=== PATIENT | female | born 1985 | race African-American/Black ===

== ENCOUNTER 2025-05-15 23:50 | Emergency (ER) | payer MEDICAID ==
[~2025-05-15] VITALS: Ht 162.6 cm; Wt 59.0 kg
[2025-05-15 23:59] VITALS: O2SAT 99
[2025-05-16 00:59] LABS: BASOPHILS % 0.5 % (0.0-2.0); EOSINOPHILS % 0.3 % (0.0-5.0); HEMATOCRIT. 35.4 % (36.0-48.0); HEMOGLOBIN. 11.6 g/dL (12.0-16.0); MEAN CORPUSCULAR HEMOGLOBIN 32.5 pg (28.0-32.0); MEAN CORPUSCULAR HGB CONC 32.8 g/dL (31.0-37.0); MEAN CORPUSCULAR VOLUME 99.2 fL (81.0-99.0); MEAN PLATELET VOLUME 8.2 fl (7.4-10.4); MONOCYTES % 4.4 % (2.0-8.0); NEUTROPHILS % 68.8 % (40.0-76.0); PLATELET 276 x1000/uL (130-400); RED BLOOD CELL COUNT 3.57 mill/uL (4.2-5.4); WHITE BLOOD COUNT 4.5 x1000/uL (4.5-11.0)
[2025-05-16 01:07] LABS: CHLORIDE 108 mEq/L (98-107); POTASSIUM 3.9 mEq/L (3.5-5.1); SODIUM 145 mEq/L (136-145)
[2025-05-16 01:08] LABS: CALCIUM 8.6 mg/dL (8.7-10.4); CARBON DIOXIDE 25 mEq/L (21-32)
[2025-05-16 01:13] LABS: CREATININE 0.7 mg/dL (0.6-1.0); GLUCOSE 95 mg/dL (70-105); UREA NITROGEN BLOOD 7 mg/dL (9-23)
[2025-05-16 01:18] LABS: B-HCG QUANTITATIVE < 1 mIU/mL (<6)
[2025-05-16] MEDS: SODIUM CHLORIDE 0.9% 1,000 ML IV ONE (01:39)
[2025-05-16] MEDS: ACETAMINOPHEN 1000MG/100ML 100 ML IV NR (01:39)
[2025-05-16] MEDS ORDERED: NAPR-1074 MT (02:30)
[2025-05-16 03:14] LABS: CLARITY URINE CLOUDY (CLEAR); COLOR URINE DARK YELLOW (YELLOW); GLUCOSE URINE NEGATIVE (NEGATIVE); KETONES URINE 1+ (NEGATIVE); LEUKOCYTE ESTERASE URINE NEGATIVE (NEGATIVE); NITRITE URINE NEGATIVE (NEGATIVE); OCCULT BLOOD URINE NEGATIVE (NEGATIVE); PH URINE 5.5 (4.5-8.0); PROTEIN URINE TRACE (NEGATIVE); SPECIFIC GRAVITY URINE 1.029 (1.005-1.030)
[2025-05-16 03:18] VITALS: BP 114/72; PULSE 96; RESP 13; TEMP 36.6; O2SAT 100
[2025-05-16 03:22] LABS: *AMPHETAMINES SCREEN URINE NEGATIVE (NEGATIVE); *BARBITURATES SCREEN URINE NEGATIVE (NEGATIVE); *BENZODIAZEPINES SCREEN URINE NEGATIVE (NEGATIVE); *COCAINE SCREEN URINE NEGATIVE (NEGATIVE); CANNABINOID URINE SCREEN NEGATIVE (NEGATIVE); ECSTASY MDMA SCREEN URINE NEGATIVE (NEGATIVE); METHADONE URINE SCREEN NEGATIVE (NEGATIVE); OPIATES URINE SCREEN NEGATIVE (NEGATIVE); PHENCYCLIDINE URINE SCREEN NEGATIVE (NEGATIVE)
[2025-05-16 04:09] LABS: SQUAMOUS EPITHELIAL CELL URINE 3+ /lpf (RARE/1+)
[2025-05-16 04:10] LABS: BACTERIA URINE TRACE; MUCUS URINE 2+ /lpf (< = 2+); RBC URINE NONE SEEN /hpf (0-2); WBC URINE 0-2 /hpf (0-2)
== END 2025-05-16 03:33 | disposition home or self-care (01) ==
LOC: ER 23:50
DX: N83.202 Unspecified ovarian cyst, left side (principal); D25.1 Intramural leiomyoma of uterus; D64.9 Anemia, unspecified; R10.30 Lower abdominal pain, unspecified; Z79.899 Other long term (current) drug therapy
CPT/HCPCS: 99285; 96365; 76830; 76856; 80305; 80048; 84702; 85025; 86850; 86900; 86901; 36415; 81003; J7030; J0131

== ENCOUNTER 2025-06-25 15:26 | Emergency (ER) | payer MEDICAID, OTHER ==
[~2025-06-25] VITALS: Ht 165.1 cm; Wt 66.0 kg
[~2025-06-25 15:26] MED LIST: NAPR-1074 MT
[2025-06-25 15:27] VITALS: O2SAT 98
[2025-06-25 17:00] LABS: BASOPHILS % 0.3 % (0.0-2.0); EOSINOPHILS % 0.5 % (0.0-5.0); HEMATOCRIT. 35.8 % (36.0-48.0); HEMOGLOBIN. 11.6 g/dL (12.0-16.0); LYMPHOCYTES % 22.0 % (20.0-50.0); MEAN PLATELET VOLUME 7.9 fl (7.4-10.4); MONOCYTES % 3.0 % (2.0-8.0); NEUTROPHILS % 74.2 % (40.0-76.0); PLATELET 276 x1000/uL (130-400); RED BLOOD CELL COUNT 3.65 mill/uL (4.2-5.4); RED CELL DISTRIBUTION WIDTH 16.4 % (11.6-14.6)
[2025-06-25 17:13] LABS: CREATININE 0.9 mg/dL (0.6-1.0); UREA NITROGEN BLOOD 6 mg/dL (9-23)
[2025-06-25 17:31] LABS: TROPONIN I HIGH SENSITIVITY < 4 ng/L (3.0-34)
[2025-06-25 17:32] LABS: ASPARTATE AMINOTRANSFERASE 115 IU/L (<34); BILIRUBIN DIRECT 0.2 mg/dL (<=3.0)
[2025-06-25 17:33] LABS: BILIRUBIN TOTAL 0.6 mg/dL (0.1-1.0); PROTEIN TOTAL 6.7 g/dL (6.0-8.3)
[2025-06-25 17:36] LABS: HCG SCREEN NEGATIVE
[2025-06-25 19:46] LABS: CLARITY URINE CLEAR (CLEAR); COLOR URINE YELLOW (YELLOW); GLUCOSE URINE NEGATIVE (NEGATIVE); KETONES URINE TRACE (NEGATIVE); LEUKOCYTE ESTERASE URINE NEGATIVE (NEGATIVE); NITRITE URINE NEGATIVE (NEGATIVE); OCCULT BLOOD URINE NEGATIVE (NEGATIVE); PH URINE 7.0 (4.5-8.0); PROTEIN URINE NEGATIVE (NEGATIVE); SPECIFIC GRAVITY URINE 1.018 (1.005-1.030); UROBILINOGEN URINE 1.0 E.U./dL (0.2-1.0)
[2025-06-25] MEDS: ONDANSETRON 4MG ODT PO ONE (19:52)
[2025-06-25] MEDS: ACETAMINOPHEN 500MG TABLET PO ONE (19:52)
[2025-06-25] MEDS ORDERED: ONDA4TAB50 MT (20:33)
[2025-06-25] MEDS ORDERED: IBUP-2028 MT (20:33)
[2025-06-25 20:39] VITALS: BP 109/81; PULSE 79; RESP 16; TEMP 36.8; O2SAT 97
== END 2025-06-25 21:04 | disposition home or self-care (01) ==
LOC: ER 15:35 → CANBEDREQ 20:21 → ER 21:04
DX: K80.20 Calculus of gallbladder without cholecystitis without obstruction (principal); R07.89 Other chest pain; K76.0 Fatty (change of) liver, not elsewhere classified; F10.90 Alcohol use, unspecified, uncomplicated; Z79.899 Other long term (current) drug therapy; Y90.9 Presence of alcohol in blood, level not specified
CPT/HCPCS: 80076; 80048; 81003; 81025; 84703; 83690; 85025; 84484; 36415; 71045; 76700; 93005; 99285; Q0162; Z7610 ×2

== ENCOUNTER 2025-06-28 05:37 | Emergency (ER) | payer OTHER ==
[~2025-06-28] VITALS: Ht 165.1 cm; Wt 60.5 kg
[~2025-06-28 05:37] MED LIST changes: +IBUP-2028 MT; +ONDA4TAB50 MT
[2025-06-28 05:51] VITALS: O2SAT 100
[2025-06-28 06:54] LABS: BASOPHILS % 1.2 % (0.0-2.0); EOSINOPHILS % 1.0 % (0.0-5.0); HEMATOCRIT. 36.0 % (36.0-48.0); HEMOGLOBIN. 11.7 g/dL (12.0-16.0); LYMPHOCYTES % 36.9 % (20.0-50.0); MEAN PLATELET VOLUME 8.1 fl (7.4-10.4); MONOCYTES % 5.8 % (2.0-8.0); NEUTROPHILS % 55.1 % (40.0-76.0); PLATELET 211 x1000/uL (130-400); RED BLOOD CELL COUNT 3.67 mill/uL (4.2-5.4); RED CELL DISTRIBUTION WIDTH 16.3 % (11.6-14.6)
[2025-06-28 07:00] LABS: HCG SCREEN NEGATIVE
[2025-06-28 07:06] LABS: CREATININE 0.8 mg/dL (0.6-1.0); TROPONIN I HIGH SENSITIVITY < 4 ng/L (3.0-34); UREA NITROGEN BLOOD 7 mg/dL (9-23)
[2025-06-28 07:07] LABS: ETHANOL BLOOD 221 mg/dL (<10)
[2025-06-28 07:08] LABS: ASPARTATE AMINOTRANSFERASE 227 IU/L (<34); BILIRUBIN DIRECT 0.2 mg/dL (<=3.0); BILIRUBIN TOTAL 0.6 mg/dL (0.1-1.0)
[2025-06-28] MEDS: ONDANSETRON 4MG ODT PO ONE (07:08)
[2025-06-28] MEDS: FAMOTIDINE 20MG TABLET PO ONE (07:08)
[2025-06-28 07:09] LABS: PROTEIN TOTAL 6.7 g/dL (6.0-8.3)
[2025-06-28] MEDS: KETOROLAC 30MG/ML VIAL IM ONE (08:13)
[2025-06-28] MEDS ORDERED: IBUP-2030 MT (08:33)
[2025-06-28 08:40] VITALS: BP 125/80; PULSE 83; RESP 18; TEMP 36.7; O2SAT 100
== END 2025-06-28 08:42 | disposition home or self-care (01) ==
LOC: ER 05:37
DX: K80.70 Calculus of gallbladder and bile duct without cholecystitis without obstruction (principal); Z79.899 Other long term (current) drug therapy
CPT/HCPCS: 80076; 80048; 81025; 80320; 84703; 83690; 85025; 84484; 36415; 76705; 96372; 99285; Q0162; J1885; G0480

== ENCOUNTER 2025-08-01 22:07 | Emergency (ER) | payer OTHER ==
[~2025-08-01] VITALS: Ht 167.6 cm; Wt 59.0 kg
[~2025-08-01 22:07] MED LIST changes: +ACET-2708 MT; +FAMO-135 MT; +HYDR-3735 PO; -IBUP-2028 MT; -NAPR-1074 MT; +PROT40 MT; +SUCR1TAB PO; +TRAZ-251 MT
[2025-08-01 22:11] VITALS: O2SAT 99
[2025-08-02 01:05] LABS: HCG SCREEN NEGATIVE
[2025-08-02 01:08] LABS: BASOPHILS % 0.2 % (0.0-2.0); EOSINOPHILS % 2.1 % (0.0-5.0); HEMATOCRIT. 28.5 % (36.0-48.0); HEMOGLOBIN. 9.5 g/dL (12.0-16.0); LYMPHOCYTES % 27.5 % (20.0-50.0); MEAN PLATELET VOLUME 8.4 fl (7.4-10.4); MONOCYTES % 4.0 % (2.0-8.0); NEUTROPHILS % 66.2 % (40.0-76.0); PLATELET 294 x1000/uL (130-400); RED BLOOD CELL COUNT 3.06 mill/uL (4.2-5.4); RED CELL DISTRIBUTION WIDTH 16.2 % (11.6-14.6)
[2025-08-02 01:09] LABS: CREATININE 0.9 mg/dL (0.6-1.0); UREA NITROGEN BLOOD 10 mg/dL (9-23)
[2025-08-02 01:11] LABS: ASPARTATE AMINOTRANSFERASE 34 IU/L (<34)
[2025-08-02 01:12] LABS: BILIRUBIN DIRECT < 0.1 mg/dL (<=3.0); BILIRUBIN TOTAL 0.2 mg/dL (0.1-1.0); PROTEIN TOTAL 6.9 g/dL (6.0-8.3)
[2025-08-02] MEDS: SODIUM CHLORIDE 0.9% 1,000 ML IV ONE (02:01)
[2025-08-02] MEDS: HALOPERIDOL LACTATE 5MG/ML VIAL IM NR (02:10)
[2025-08-02] MEDS: HALOPERIDOL LACTATE 5MG/ML VIAL IM ONE (02:10)
[2025-08-02] MEDS ORDERED: ACETAMINOPHEN 325MG TABLET PO PRN ×2 (02:15)
[2025-08-02] MEDS ORDERED: ONDANSETRON HCL 4MG/2ML INJ IV PRN (02:15)
[2025-08-02] MEDS ORDERED: LORAZEPAM 2MG/ML UD SYRINGE IV PRN (02:15)
[2025-08-02] MEDS: FOLIC ACID 1 MG, THIAMINE HCL 100 MG, MVI, ADULT NO.1 10 ML in DEXTROSE 5% WATER 1,000 ML IV ONE (02:36)
[2025-08-02] MEDS: ONDANSETRON HCL 4MG/2ML INJ IV ONE (02:36)
[2025-08-02] MEDS: MAGNESIUM/ALUMINUM HYDROXIDE/SIMETHICONE 30ML UDC PO NR (02:37)
[2025-08-02] MEDS: MAGNESIUM/ALUMINUM HYDROXIDE/SIMETHICONE 30ML UDC PO ONE (02:37)
[2025-08-02] MEDS: ONDANSETRON HCL 4MG/2ML INJ IV NR (02:38)
[2025-08-02 08:47] VITALS: BP 114/76; PULSE 83; RESP 15; TEMP 36.7; O2SAT 99
[2025-08-02] MEDS: THIAMINE HCL 100MG TABLET PO SCH (09:12)
== END 2025-08-02 10:12 | disposition left against medical advice (07) ==
LOC: ER 22:07 → EDBEDREQ 08-02 01:59 → EDBEDREQTM 08-02 01:59 → EDBEDREQDT 08-02 01:59 → CANBEDREQ 08-02 10:09 → ER 08-02 10:12
DX: R10.11 Right upper quadrant pain (principal); F10.20 Alcohol dependence, uncomplicated; E87.1 Hypo-osmolality and hyponatremia; E87.0 Hyperosmolality and hypernatremia; Z79.899 Other long term (current) drug therapy; Z86.018 Personal history of other benign neoplasm; Z87.19 Personal history of other diseases of the digestive system; Z88.6 Allergy status to analgesic agent
CPT/HCPCS: 99291; 36415; 96365; 96366; 96361; 96375; 80076; 80048; 84703; 83690; 85025; J7030; J3490 ×2; J2405; J3411; J7070; A4606

== ENCOUNTER 2025-08-17 23:58 | Emergency (ER) | payer OTHER ==
[~2025-08-17] VITALS: Ht 165.1 cm; Wt 68.0 kg
[~2025-08-17 23:58] MED LIST changes: -TRAZ-251 MT
[2025-08-18 00:01] VITALS: BP 106/68; PULSE 94; RESP 16; TEMP 36.9; O2SAT 100
[2025-08-18 01:45] LABS: BASOPHILS % 1.2 % (0.0-2.0); EOSINOPHILS % 1.2 % (0.0-5.0); HEMATOCRIT. 32.2 % (36.0-48.0); HEMOGLOBIN. 10.6 g/dL (12.0-16.0); LYMPHOCYTES % 31.3 % (20.0-50.0); MEAN PLATELET VOLUME 8.0 fl (7.4-10.4); MONOCYTES % 3.1 % (2.0-8.0); NEUTROPHILS % 63.2 % (40.0-76.0); PLATELET 320 x1000/uL (130-400); RED BLOOD CELL COUNT 3.47 mill/uL (4.2-5.4); RED CELL DISTRIBUTION WIDTH 16.6 % (11.6-14.6)
[2025-08-18 01:59] LABS: CREATININE 0.7 mg/dL (0.6-1.0); UREA NITROGEN BLOOD 6 mg/dL (9-23)
[2025-08-18 02:01] LABS: ASPARTATE AMINOTRANSFERASE 23 IU/L (<34); BILIRUBIN DIRECT < 0.1 mg/dL (<=3.0); BILIRUBIN TOTAL 0.3 mg/dL (0.1-1.0); PROTEIN TOTAL 7.1 g/dL (6.0-8.3)
== END 2025-08-18 02:40 | disposition home or self-care (01) ==
LOC: ER 23:58
DX: K80.20 Calculus of gallbladder without cholecystitis without obstruction (principal); Z79.899 Other long term (current) drug therapy; Z88.6 Allergy status to analgesic agent
CPT/HCPCS: 36415; 76705; 80048; 80076; 80320; 85025; 99284; G0480

== ENCOUNTER 2025-08-18 03:00 | Emergency (ER) | payer OTHER ==
[~2025-08-18] VITALS: Ht 165.1 cm; Wt 59.0 kg
[2025-08-18 03:09] VITALS: O2SAT 96
[2025-08-18] MEDS ORDERED: MORPHINE SULFATE 4 MG/ML INJ (FOR IV/IM USE) IV ONE (06:45)
[2025-08-18] MEDS: SODIUM CHLORIDE 0.9% 1,000 ML IV ONE (07:34)
[2025-08-18] MEDS: KETOROLAC 30MG/ML VIAL IV ONE (07:35)
[2025-08-18] MEDS: ONDANSETRON HCL 4MG/2ML INJ IV ONE (07:35)
[2025-08-18 07:44] VITALS: TEMP 36.7; O2SAT 99
[2025-08-18 07:53] VITALS: BP 106/79; PULSE 74; RESP 18; TEMP 98.1
[2025-08-18 07:54] LABS: CREATININE 0.8 mg/dL (0.6-1.0); UREA NITROGEN BLOOD 7 mg/dL (9-23)
[2025-08-18 07:55] LABS: BASOPHILS % 1.0 % (0.0-2.0); EOSINOPHILS % 1.6 % (0.0-5.0); HEMATOCRIT. 37.5 % (36.0-48.0); HEMOGLOBIN. 12.1 g/dL (12.0-16.0); LYMPHOCYTES % 34.2 % (20.0-50.0); MEAN PLATELET VOLUME 8.1 fl (7.4-10.4); MONOCYTES % 4.3 % (2.0-8.0); NEUTROPHILS % 58.9 % (40.0-76.0); PLATELET 306 x1000/uL (130-400); RED BLOOD CELL COUNT 3.97 mill/uL (4.2-5.4); RED CELL DISTRIBUTION WIDTH 16.9 % (11.6-14.6)
[2025-08-18 07:56] LABS: ASPARTATE AMINOTRANSFERASE 29 IU/L (<34); BILIRUBIN DIRECT < 0.1 mg/dL (<=3.0); BILIRUBIN TOTAL 0.3 mg/dL (0.1-1.0); PROTEIN TOTAL 8.0 g/dL (6.0-8.3)
[2025-08-18 08:53] LABS: CLARITY URINE CLEAR (CLEAR); COLOR URINE YELLOW (YELLOW); GLUCOSE URINE NEGATIVE (NEGATIVE); KETONES URINE TRACE (NEGATIVE); LEUKOCYTE ESTERASE URINE NEGATIVE (NEGATIVE); NITRITE URINE NEGATIVE (NEGATIVE); OCCULT BLOOD URINE NEGATIVE (NEGATIVE); PH URINE 5.0 (4.5-8.0); PROTEIN URINE NEGATIVE (NEGATIVE); SPECIFIC GRAVITY URINE 1.021 (1.005-1.030); UROBILINOGEN URINE 0.2 E.U./dL (0.2-1.0)
== END 2025-08-18 10:20 | disposition left against medical advice (07) ==
LOC: ER 03:00 → EDBEDREQ 09:15 → CANBEDREQ 10:12 → ER 10:20
DX: K80.70 Calculus of gallbladder and bile duct without cholecystitis without obstruction (principal); E11.9 Type 2 diabetes mellitus without complications; M19.90 Unspecified osteoarthritis, unspecified site; Z98.890 Other specified postprocedural states; Z79.899 Other long term (current) drug therapy; Z88.6 Allergy status to analgesic agent
CPT/HCPCS: 80076; 80048; 81003; 83690; 85025; 36415; 96361; 96374; 96375; 99284; J1885; J2405; J7030; Z7610; J2270

== ENCOUNTER 2025-08-25 01:17 | Emergency (ER) | payer OTHER ==
[~2025-08-25] VITALS: Ht 165.1 cm; Wt 77.0 kg
[2025-08-25 01:19] VITALS: TEMP 36.9; O2SAT 98
[2025-08-25 03:26] LABS: BASOPHILS % 1.3 % (0.0-2.0); EOSINOPHILS % 0.7 % (0.0-5.0); HEMATOCRIT. 32.4 % (36.0-48.0); HEMOGLOBIN. 10.5 g/dL (12.0-16.0); LYMPHOCYTES % 26.9 % (20.0-50.0); MEAN PLATELET VOLUME 7.6 fl (7.4-10.4); MONOCYTES % 4.4 % (2.0-8.0); NEUTROPHILS % 66.7 % (40.0-76.0); PLATELET 265 x1000/uL (130-400); RED BLOOD CELL COUNT 3.50 mill/uL (4.2-5.4); RED CELL DISTRIBUTION WIDTH 16.0 % (11.6-14.6)
[2025-08-25 03:31] LABS: CREATININE 0.8 mg/dL (0.6-1.0); UREA NITROGEN BLOOD 5 mg/dL (9-23)
[2025-08-25 03:33] LABS: ASPARTATE AMINOTRANSFERASE 30 IU/L (<34); BILIRUBIN DIRECT 0.3 mg/dL (<=3.0); BILIRUBIN TOTAL 0.8 mg/dL (0.1-1.0)
[2025-08-25 03:34] LABS: PROTEIN TOTAL 7.4 g/dL (6.0-8.3)
[2025-08-25 03:47] LABS: HCG SCREEN NEGATIVE
[2025-08-25 05:35] VITALS: BP 152/84; PULSE 109; RESP 18
[2025-08-25] MEDS: KETOROLAC 15MG/ML VIAL IM ONE (05:35)
== END 2025-08-25 05:37 | disposition home or self-care (01) ==
LOC: ER 01:17
DX: R10.11 Right upper quadrant pain (principal); F10.20 Alcohol dependence, uncomplicated; Z88.6 Allergy status to analgesic agent; Z79.899 Other long term (current) drug therapy; Y90.9 Presence of alcohol in blood, level not specified
CPT/HCPCS: 36415; 74176; 76705; 80048; 80076; 84703; 85025; 99284

== ENCOUNTER 2025-09-06 00:59 | Emergency (ER) | payer OTHER ==
[~2025-09-06] VITALS: Ht 165.1 cm; Wt 61.0 kg
[2025-09-06 01:15] VITALS: O2SAT 100
[2025-09-06] MEDS ORDERED: HALOPERIDOL LACTATE 5MG/ML VIAL IM ONE (02:15)
[2025-09-06 03:00] LABS: BASOPHILS % 0.5 % (0.0-2.0); EOSINOPHILS % 0.3 % (0.0-5.0); HEMATOCRIT. 29.1 % (36.0-48.0); HEMOGLOBIN. 9.4 g/dL (12.0-16.0); LYMPHOCYTES % 21.8 % (20.0-50.0); MEAN PLATELET VOLUME 7.8 fl (7.4-10.4); MONOCYTES % 3.7 % (2.0-8.0); NEUTROPHILS % 73.7 % (40.0-76.0); PLATELET 252 x1000/uL (130-400); RED BLOOD CELL COUNT 3.13 mill/uL (4.2-5.4); RED CELL DISTRIBUTION WIDTH 16.6 % (11.6-14.6)
[2025-09-06 03:09] LABS: CLARITY URINE CLEAR (CLEAR); COLOR URINE YELLOW (YELLOW); GLUCOSE URINE NEGATIVE (NEGATIVE); KETONES URINE TRACE (NEGATIVE); LEUKOCYTE ESTERASE URINE NEGATIVE (NEGATIVE); NITRITE URINE NEGATIVE (NEGATIVE); OCCULT BLOOD URINE NEGATIVE (NEGATIVE); PH URINE 7.0 (4.5-8.0); PROTEIN URINE NEGATIVE (NEGATIVE); SPECIFIC GRAVITY URINE 1.015 (1.005-1.030); UROBILINOGEN URINE 1.0 E.U./dL (0.2-1.0)
[2025-09-06 03:13] LABS: CREATININE 0.6 mg/dL (0.6-1.0); UREA NITROGEN BLOOD 5 mg/dL (9-23)
[2025-09-06 03:14] LABS: TROPONIN I HIGH SENSITIVITY < 4 ng/L (3.0-34)
[2025-09-06] MEDS: ONDANSETRON HCL 4MG/2ML INJ IM ONE (03:32)
[2025-09-06] MEDS: KETOROLAC 15MG/ML VIAL IV SCH (03:32)
[2025-09-06] MEDS ORDERED: MORPHINE SULFATE 4 MG/ML INJ (FOR IV/IM USE) IM SCH (04:00)
[2025-09-06 05:05] VITALS: BP 113/74; PULSE 84; RESP 14; TEMP 36.7; O2SAT 100
[2025-09-08] MEDS ORDERED: SUCR1TAB30 MT (14:14)
[2025-09-08] MEDS ORDERED: PROT40 MT (14:14)
== END 2025-09-06 05:05 | disposition home or self-care (01) ==
LOC: ER 01:15
DX: R07.9 Chest pain, unspecified (principal); K21.9 Gastro-esophageal reflux disease without esophagitis; R10.9 Unspecified abdominal pain; Z79.899 Other long term (current) drug therapy; Z88.6 Allergy status to analgesic agent
CPT/HCPCS: 99285; 96374; 71045; 80048; 81003; 81025; 83690; 85025; 84484; 36415; 93005; 96372; J1885; J2405

== ENCOUNTER 2025-09-16 23:09 | Emergency (ER) | payer OTHER ==
[~2025-09-16] VITALS: Ht 167.6 cm; Wt 78.0 kg
[2025-09-16 23:13] VITALS: BP 146/82; PULSE 90; RESP 18; TEMP 36.8; O2SAT 99
== END 2025-09-16 23:40 | disposition left against medical advice (07) ==
LOC: ER 23:09
DX: R10.9 Unspecified abdominal pain (principal)
CPT/HCPCS: 80048; 80076; 80305; 80320; 81003; 84703; 99281; G0480

== ENCOUNTER 2025-09-20 23:45 | Emergency (ER) | payer MEDICAID ==
[~2025-09-20] VITALS: Ht 165.1 cm; Wt 59.0 kg
[2025-09-21 00:01] VITALS: O2SAT 100
[2025-09-21 01:20] LABS: BASOPHILS % 1.3 % (0.0-2.0); EOSINOPHILS % 0.6 % (0.0-5.0); HEMATOCRIT. 31.0 % (36.0-48.0); HEMOGLOBIN. 10.1 g/dL (12.0-16.0); LYMPHOCYTES % 21.4 % (20.0-50.0); MEAN PLATELET VOLUME 7.8 fl (7.4-10.4); MONOCYTES % 3.1 % (2.0-8.0); NEUTROPHILS % 73.6 % (40.0-76.0); PLATELET 436 x1000/uL (130-400); RED BLOOD CELL COUNT 3.45 mill/uL (4.2-5.4); RED CELL DISTRIBUTION WIDTH 16.3 % (11.6-14.6)
[2025-09-21 01:36] LABS: CREATININE 0.7 mg/dL (0.6-1.0)
[2025-09-21 01:37] LABS: ASPARTATE AMINOTRANSFERASE 25 IU/L (<34); BILIRUBIN DIRECT 0.2 mg/dL (<=3.0); TROPONIN I HIGH SENSITIVITY < 4 ng/L (3.0-34); UREA NITROGEN BLOOD 6 mg/dL (9-23)
[2025-09-21 01:38] LABS: BILIRUBIN TOTAL 0.5 mg/dL (0.1-1.0); PROTEIN TOTAL 7.5 g/dL (6.0-8.3)
[2025-09-21] MEDS: MAGNESIUM/ALUMINUM HYDROXIDE/SIMETHICONE 30ML UDC PO ONE (01:53)
[2025-09-21] MEDS ORDERED: MAG-55 MT (02:47)
[2025-09-21 03:07] LABS: CLARITY URINE CLEAR (CLEAR); COLOR URINE YELLOW (YELLOW); GLUCOSE URINE NEGATIVE (NEGATIVE); KETONES URINE NEGATIVE (NEGATIVE); LEUKOCYTE ESTERASE URINE NEGATIVE (NEGATIVE); NITRITE URINE NEGATIVE (NEGATIVE); OCCULT BLOOD URINE NEGATIVE (NEGATIVE); PH URINE 6.0 (4.5-8.0); PROTEIN URINE NEGATIVE (NEGATIVE); SPECIFIC GRAVITY URINE 1.015 (1.005-1.030); UROBILINOGEN URINE 1.0 E.U./dL (0.2-1.0)
[2025-09-21 03:27] VITALS: BP 118/68; PULSE 99; RESP 18; TEMP 36.9; O2SAT 100
== END 2025-09-21 03:34 | disposition home or self-care (01) ==
LOC: ER 23:45
DX: R10.84 Generalized abdominal pain (principal); R07.89 Other chest pain; K80.20 Calculus of gallbladder without cholecystitis without obstruction; F10.90 Alcohol use, unspecified, uncomplicated; N89.8 Other specified noninflammatory disorders of vagina; Z79.899 Other long term (current) drug therapy; Z88.6 Allergy status to analgesic agent; Y90.9 Presence of alcohol in blood, level not specified
CPT/HCPCS: 36415; 71045; 80048; 80076; 80320; 81003; 81025; 84484; 84702; 85025; 93005; 99285; G0480

== ENCOUNTER 2025-10-05 19:46 | Emergency (ER) | payer MEDICAID ==
[~2025-10-05] VITALS: Ht 165.1 cm; Wt 65.0 kg
[~2025-10-05 19:46] MED LIST changes: +MAG-55 MT
[2025-10-05 19:56] VITALS: O2SAT 98
[2025-10-05 21:02] LABS: BASOPHILS % 0.6 % (0.0-2.0); EOSINOPHILS % 1.4 % (0.0-5.0); HEMATOCRIT. 31.9 % (36.0-48.0); HEMOGLOBIN. 10.2 g/dL (12.0-16.0); LYMPHOCYTES % 17.3 % (20.0-50.0); MEAN PLATELET VOLUME 7.7 fl (7.4-10.4); MONOCYTES % 4.9 % (2.0-8.0); NEUTROPHILS % 75.8 % (40.0-76.0); PLATELET 203 x1000/uL (130-400); RED BLOOD CELL COUNT 3.55 mill/uL (4.2-5.4); RED CELL DISTRIBUTION WIDTH 18.3 % (11.6-14.6)
[2025-10-05 21:17] LABS: CREATININE 0.7 mg/dL (0.6-1.0); UREA NITROGEN BLOOD 5 mg/dL (9-23)
[2025-10-05 21:18] LABS: TROPONIN I HIGH SENSITIVITY < 4 ng/L (3.0-34)
[2025-10-05 21:20] LABS: HCG SCREEN POSITIVE
[2025-10-05] MEDS: ACETAMINOPHEN 325MG TABLET PO ONE (22:55)
[2025-10-05 23:59] LABS: ASPARTATE AMINOTRANSFERASE 29 IU/L (<34); BILIRUBIN DIRECT < 0.1 mg/dL (<=3.0); BILIRUBIN TOTAL 0.4 mg/dL (0.1-1.0); PROTEIN TOTAL 7.7 g/dL (6.0-8.3)
[2025-10-06 00:32] LABS: TROPONIN I HIGH SENSITIVITY < 4 ng/L (3.0-34)
[2025-10-06 02:06] LABS: B-HCG QUANTITATIVE 13827 mIU/mL (<6)
[2025-10-06 02:59] VITALS: BP 129/85; PULSE 89; RESP 18; TEMP 36.9; O2SAT 98
== END 2025-10-06 03:03 | disposition home or self-care (01) ==
LOC: ER 19:46
DX: R10.11 Right upper quadrant pain (principal); O20.0 Threatened abortion; R11.2 Nausea with vomiting, unspecified; R07.89 Other chest pain; Z79.899 Other long term (current) drug therapy; Z3A.01 Less than 8 weeks gestation of pregnancy; Z87.19 Personal history of other diseases of the digestive system; Z88.6 Allergy status to analgesic agent
CPT/HCPCS: 36415; 71045; 76705; 76801; 80048; 80076; 80320; 84484; 84702; 84703; 85025; 85379; 86850; 86900; 93005; 93970; 99285; G0480